=== PATIENT | male | born 1990 | race African-American/Black ===

== ENCOUNTER 2019-09-07 09:12 | Emergency (ER) | payer MEDICAID, OTHER ==
[~2019-09-07] VITALS: Ht 175.3 cm; Wt 81.6 kg
[2019-09-07 11:16] VITALS: BP 130/86
== END 2019-09-07 11:20 | disposition home or self-care (01) ==
LOC: ER 09:12
DX: R07.89 Other chest pain (principal); J45.909 Unspecified asthma, uncomplicated; J32.9 Chronic sinusitis, unspecified; Z87.19 Personal history of other diseases of the digestive system
CPT/HCPCS: 71045; 93005; 99283